=== PATIENT | female | born 1995 | race African-American/Black ===

== ENCOUNTER 2022-07-26 08:45 | Emergency (ER) | payer MEDICAID ==
[~2022-07-26] VITALS: Ht 170.2 cm; Wt 50.0 kg
[2022-07-26] MEDS ORDERED: TETANUS, DIPHTHERIA, PERTUSSIS VAC/PF 0.5ML (>10YR OLD) IM ONE ×2 (09:45→11:30)
[2022-07-26] MEDS ORDERED: HYDROCODONE/ACETAMINOPHEN 5/325MG TABLET PO ONE (09:45)
[2022-07-26] MEDS ORDERED: LIDOCAINE HCL/PF 1% 10 MG/ML 5ML VIAL INFIL ONE (09:45)
[2022-07-26] MEDS ORDERED: BACITRACIN ZINC OINT UDPKT TOP ONE (09:45)
[2022-07-26] MEDS: LIDOCAINE HCL/PF 1% 10 MG/ML 5ML VIAL INFIL NR ×2 (10:45→11:02)
[2022-07-26] MEDS: HYDROCODONE/ACETAMINOPHEN 5/325MG TABLET PO NR ×4 (10:45→11:37)
[2022-07-26] MEDS: BACITRACIN ZINC OINT UDPKT TOP NR ×2 (10:45→11:02)
[2022-07-26 11:37] VITALS: BP 136/114
[2022-07-26] MEDS ORDERED: MUPI1OIN4 TP (11:51)
== END 2022-07-26 12:20 | disposition home or self-care (01) ==
LOC: ER 08:45
DX: S61.210A Laceration without foreign body of right index finger without damage to nail, initial encounter (principal); Y04.0XXA Assault by unarmed brawl or fight, initial encounter; Y93.89 Activity, other specified; Y92.89 Other specified places as the place of occurrence of the external cause; Y99.8 Other external cause status
CPT/HCPCS: 12002; 73140; 90471; 90715; 99283; Z7610